=== PATIENT | female | born 1955 | race Caucasian/White ===

== ENCOUNTER 2016-12-08 15:49 | Emergency (ER) | payer OTHER ==
[~2016-12-08] VITALS: Wt 78.5 kg
[2016-12-08] MEDS ORDERED: DEXAMETHASONE 10 MG/ML 1 ML INJ PO ONE (16:30)
[2016-12-08 19:46] LABS: BASOPHILS % 0.4 % (0.0-2.0); HEMATOCRIT 44.3 % (37.0-47.0); HEMOGLOBIN 14.9 g/dl (12.0-16.0); LYMPHOCYTES % 11.7 % (15.0-51.0); MEAN CORPUSCULAR HEMOGLOBIN 31.2 pg (29.0-33.0); MEAN CORPUSCULAR HGB CONC 33.6 g/dl (32.0-37.0); MEAN CORPUSCULAR VOLUME 92.7 fl (82.0-101.0); MEAN PLATELET VOLUME 10.4 fl (7.4-10.4); MONOCYTE # 0.1 10^3/ul (0.3-0.9); MONOCYTES % 1.4 % (0.0-11.0); NEUTROPHILS % 86.1 % (39.0-77.0); PLATELET COUNT 324 10^3/UL (140-415); RED BLOOD COUNT 4.78 10^6/ul (4.20-5.40); RED CELL DISTRIBUTION WIDTH 12.3 % (11.5-14.5); WHITE BLOOD COUNT 8.5 10^3/ul (4.8-10.8)
[2016-12-08 19:59] LABS: ADD UMIC YES; UR ASCORBIC ACID NEGATIVE (NEGATIVE); UR BILIRUBIN (Dip) NEGATIVE (NEGATIVE); UR BLOOD (Dip) 2+ mg/dL (NEGATIVE); UR CLARITY CLEAR (CLEAR); UR COLOR STRAW (YELLOW); UR GLUCOSE (Dip) NEGATIVE (NEGATIVE); UR KETONES (Dip) TRACE mg/dL (NEGATIVE); UR LEUKOCYTE ESTERASE (Dip) 2+ Leu/ul (NEGATIVE); UR NITRITE (Dip) NEGATIVE (NEGATIVE); UR RBC 13 /HPF (0-5); UR SPECIFIC GRAVITY (Dip) 1.009 (1.003-1.030); UR TOTAL PROTEIN (Dip) NEGATIVE (NEGATIVE); UR UROBILINOGEN (Dip) NEGATIVE (NEGATIVE)
[2016-12-08 20:20] LABS: ALBUMIN/GLOBULIN RATIO 1.25; BILIRUBIN,INDIRECT 0.4 mg/dl (0-1.1); BILIRUBIN,TOTAL 0.4 mg/dl (0.2-1.3); CALCIUM 9.8 mg/dl (8.4-10.2); CREATININE 0.67 mg/dl (0.44-1.00); POTASSIUM 4.4 mmol/L (3.5-5.1)
[2016-12-08] MEDS ORDERED: SOD CHLORIDE 0.9% 100 ML ONE (20:26)
[2016-12-08] MEDS ORDERED: IOHEXOL 300MG/ML 150 ML BTL ONE (20:26)
--- NOTE | 2016-12-08 21:26 | ERA ---
ER Documentation Chief Complaint Date/Time DATE: 12/08/16 TIME: 21:22 Chief Complaint PT C/O THROAT DISCOMFORT, MILD SOB AFTER EATING FIG HPI 61-year-old female with no past medical history presenting with a chief complaint of pharyngitis 2 days. Patient has not taken any medications to relieve the symptoms. Patient says that is worse when swallowing. Denies difficulty breathing, dysphagia, change in voice, drooling, fatigue, oral swelling, ear pain, or meningismus. Patients vaccination status is up to date. No recent travel or recent antibiotic use. Nursing has been reviewed and are consistent with history given. ROS All systems reviewed and are negative except as per history of present illness. Medications Home Meds Active Scripts Prednisone* (Prednisone*) 20 Mg Tab, 40 MG PO DAILY for 4 Days, TAB Prov:REEMA CHUNG PA-C 12/08/16 Amoxicillin/Potassium Clav (Amox-Clav 875-125 mg Tablet) 875-125 mg Tab, 1 TAB PO BID for 10 Days, #20 TAB Prov:REEMA CHUNG PA-C 12/08/16 Allergies Allergies: Coded Allergies: No Known Allergy (Unverified , 12/08/16) PMhx/Soc Medical and Surgical Hx: pt denies Medical Hx, pt denies Surgical Hx Hx Alcohol Use: No Hx Substance Use: No Hx Tobacco Use: No Smoking Status: Never smoker Physical Exam Vitals Vital Signs Date Time Temp Pulse Resp B/P Pulse Ox O2 Delivery O2 Flow Rate FiO2 12/08/16 15:51 97.6 72 18 161/91 98 Physical Exam Const: [] Head: Atraumatic Eyes: Normal Conjunctiva ENT: Normal External Ears, Nose and Mouth. Neck: Full range of motion..~ No meningismus. Resp: Clear to auscultation bilaterally Cardio: Regular rate and rhythm, no murmurs Abd: Soft, non tender, non distended. Normal bowel sounds Skin: No petechiae or rashes Back: No midline or flank tenderness Ext: No cyanosis, or edema Neur: Awake and alert Psych: Normal Mood and Affect Result Diagram: 12/08/16193412/08/161934 Results 24 hrs Laboratory Tests Test 12/08/16 19:35 White Blood Count 8.510^3/ul Red Blood Count 4.7810^6/ul Hemoglobin 14.9g/dl Hematocrit 44.3% Mean Corpuscular Volume 92.7fl Mean Corpuscular Hemoglobin 31.2pg Mean Corpuscular Hemoglobin Concent 33.6g/dl Red Cell Distribution Width 12.3% Platelet Count 51544^3/UL Mean Platelet Volume 10.4fl Neutrophils % 86.1% Lymphocytes % 11.7% Monocytes % 1.4% Eosinophils % 0.0% Basophils % 0.4% Nucleated Red Blood Cells % 0.0/100WBC Neutrophils # (Manual) 710^3/ul Lymphocytes # 1.010^3/ul Monocytes # 0.110^3/ul Eosinophils # 0.010^3/ul Basophils # 0.010^3/ul Nucleated Red Blood Cells # 0.010^3/ul Urine Color STRAW Urine Clarity CLEAR Urine pH 6.0 Urine Specific [place] 1.009 Urine Ketones TRACEmg/dL Urine Nitrite NEGATIVEmg/dL Urine Bilirubin NEGATIVEmg/dL Urine Urobilinogen NEGATIVEmg/dL Urine Leukocyte Esterase 2+Taryn/ul Urine Microscopic RBC 13/HPF Urine Microscopic WBC 4/HPF Urine Hemoglobin 2+mg/dL Urine Glucose NEGATIVEmg/dL Urine Total Protein NEGATIVEmg/dl Sodium Level 139mmol/L Potassium Level 4.4mmol/L Chloride Level 101mmol/L Carbon Dioxide Level 27mmol/L Anion Gap 15 Blood Urea Nitrogen 17mg/dl Creatinine 0.67mg/dl Glucose Level 139mg/dl Calcium Level 9.8mg/dl Total Bilirubin 0.4mg/dl Direct Bilirubin 0.00mg/dl Indirect Bilirubin 0.4mg/dl Aspartate Amino Transf (AST/SGOT) 118IU/L Alanine Aminotransferase (ALT/SGPT) 42IU/L Alkaline Phosphatase 79IU/L Total Protein 9.0g/dl Albumin 5.0g/dl Globulin 4.00g/dl Albumin/Globulin Ratio 1.25 Current Medications Medications (Trade) Dose Ordered Sig/Gomez Route PRN Reason Start Time Stop Time Status Last Admin Dose Admin Dexamethasone (Decadron) 8 mg ONCE ONCE PO 12/08/16 16:30 12/08/16 16:31 DC 12/08/16 17:34 IV Flush 10 ml 10 ml STK-MED ONCE .ROUTE 12/08/16 20:26 12/08/16 20:27 DC 12/08/16 20:52 Sodium Chloride (NS) 100 ml @ ud STK-MED ONCE .ROUTE 12/08/16 20:26 12/08/16 20:27 DC 12/08/16 20:53 Iohexol (Omnipaque 300mg/ ml) 150 ml STK-MED ONCE .ROUTE 12/08/16 20:26 12/08/16 20:27 DC 12/08/16 20:52 Procedures/MDM Otherwise healthy 61-year-old female presented with a chief complaint of pharyngitis as described in history and physical examination. Mild swelling mild uvula deviation. No trismus, difficulty breathing, or change in voice. No lymphadenopathy. Able to tolerate secretions. Patient is a new Centor criteria of 2/5 and I do not suspect pharyngitis due to beta Streptococcus at this time. Refuses pain medication at this time. Dexamethasone p.o. was given in the ED with significant decrease in swelling. Labs were obtained and were largely unremarkable. Urinalysis was obtained and consistent with asymptomatic urinary tract infection. CT with contrast was ordered, read by the radiologist, given the following impression: 1. No evidence of peritonsillar or retropharyngeal abscess. 2. Normal size and morphology involving the pharyngeal tonsils. 3. Hypodense left thyroid lobe nodule. If deemed clinically appropriate, then non emergent thyroid ultrasound as an outpatient might be considered. 4. Incidental partially empty sella turcica. 5. Mild cervical spondylosis. The current most likely diagnosis is [DX]. The treatment plan will thus include out-patient prednisone, antibiotics and supportive measures. At this time I do not suspect diphtheria, Radha-Bowens virus, peritonsillar abscess, epiglottitis, retropharyngeal abscess, parapharyngeal abscess, or allergic reaction. I no longer have suspicion for endangerment of the airway. I have spoke with the patients regarding their condition and future management. They have verbally responded that they understand and agree with their status and treatment plan. The patients vitals are stable, and their current condition is appropriate for discharge. The patient will be given discharge instructions with return precautions. Discharge medications: Prednisone p.o. 4 days; Augmentin 10 days Departure Diagnosis: Primary Impression: Pharyngitis Qualified Code: J02.9 - Pharyngitis, unspecified etiology Condition: Stable Additional Instructions: Follow up with your PCP within the next 1-3 days for a more thorough evaluation and a possible referral to a specialist. Return the the emergency department immediately if symptoms worsen or change. If you have any questions regarding medications, ask your pharmacist or us before you leave. If any adverse reactions occur while taking your medications, discontinue the treatment and return to the emergency department immediately. Take your medications as directed, and complete the entire course of treatment. REEMA CHUNG PA-C Dec 08, 2016 21:26
--- NOTE | 2016-12-08 21:27 | RADRPT ---
PROCEDURE: CT soft tissue neck with contrast CLINICAL INDICATION: Neck pain and swelling. Pharyngitis Clinical concern for peritonsillar absces s TECHNIQUE: A CT of the neck was performed utilizing axial sections from the from the thoracic inle t through the skull base with contrast. Coronal and sagittal images were also reformatted. 80 cc of Omnipaque-300 intravenous contrast was administered. The exam CTDI vol = 8.77 mGy and DLP = 213.95 m Gy-cm. COMPARISON: None available FINDINGS: Visualized intracranial structures and skull base: The included portions of the cerebral hemispheres and posterior fossa are unremarkable with the fourth ventricle midline. The mastoid air cells and included paranasal sinuses are clear. Incidental note is made of a partially empty sella turcica Nasopharynx, oropharynx and tongue base: The pharyngeal tonsils are normal in size and symmetric. Th e parapharyngeal fat planes are preserved and there is no evidence of abnormal fluid collection to s uggest an abscess. No nasopharyngeal mass is present. The tongue base is unremarkable. Some denta l amalgam artifact limits fine evaluation of these regions. Parotid and beef boner spaces: The glands are normal in size and homogeneous in attenuation without mass or inflammation. The muscles of mastication and temporomandibular joints are normal bilaterall y. Carotid spaces: The lymph nodes are normal in size bilaterally. No mass lesion or inflammation is de monstrated. The vasculature is unremarkable bilaterally. Submandibular and submental spaces: The glands and lymph nodes are normal. There is no evidence of calcification. The sublingual space is unremarkable. Posterior triangles: The lymph nodes are normal in size bilaterally. There is no mass lesion or inf lammation. Larynx and infraglottic airway: The epiglottis, aryepiglottic folds, vocal cords and piriform sinus es are unremarkable. No intrinsic tracheal abnormality is demonstrated. Visceral space: A small left thyroid lobe nodule is estimated at 7.3 mm. There is no evidence of th yromegaly or mass effect upon the trachea. The cervical esophagus is unremarkable. Supraclavicular fossae: No evidence of adenopathy or mass lesion. Visualized thorax: No evidence of pulmonary infiltrates or superior mediastinal abnormality. Cervical spine: No evidence of fracture, lytic or blastic lesion. Mild degenerative anterior spondy losis is present. The reversal of the normal cervical lordosis may be from muscle spasm. RPTAT:HJJR IMPRESSION: 1. No evidence of peritonsillar or retropharyngeal abscess. 2. Normal size and morphology involving the pharyngeal tonsils. 3. Hypodense left thyroid lobe nodule. If deemed clinically appropriate, then non emergent thyroid ultrasound as an outpatient might be considered. 4. Incidental partially empty sella turcica. 5. Mild cervical spondylosis. Massimo Rivera Physician Date Time Electronically viewed and signed by Massimo Rivera Physician on 12/08/2016 21:27 JR/
[2016-12-08] MEDS ORDERED: PRED20TA PO (21:48)
[2016-12-08] MEDS ORDERED: AMOX1TAB10 PO (21:48)
[2016-12-08 22:09] VITALS: BP 143/87; PULSE 76; RESP 16; TEMP 98.7
== END 2016-12-08 22:11 | disposition home or self-care (01) ==
LOC: FTE 15:49
DX: J02.9 Acute pharyngitis, unspecified (principal)
CPT/HCPCS: 36415; 70491; 80053; 81001; 85025; J1100; Q9967; Z7502; Z7610

== ENCOUNTER 2017-06-24 09:30 | Emergency (ER) | END 2017-06-24 13:42 | disposition home or self-care (01) ==

== ENCOUNTER 2017-07-07 12:58 | Inpatient (IN) | END 2017-07-14 13:10 | disposition home health service (06) | DRG 872 ==

== ENCOUNTER 2018-02-06 10:38 | Emergency (ER) | END 2018-02-06 14:28 | disposition home or self-care (01) ==

== ENCOUNTER 2018-03-26 10:30 | Emergency (ER) | END 2018-03-26 12:51 | disposition home or self-care (01) ==